=== PATIENT | male | born 1985 ===

== ENCOUNTER 2020-08-27 10:01 | Emergency (ER) | payer BC ==
[~2020-08-27] VITALS: Ht 180.3 cm; Wt 97.7 kg
[~2020-08-27 10:01] MED LIST: DOXYCYCLINE 10100 MG PO; NO HOME MEDICATIONS; PREDNISONE20 MG PO; PROAIR HFA0.09 MG/AC IH; TYLENOL 325MG325 MG PO; ZITHROMAX Z PA250 MG PO
[2020-08-27 10:09] VITALS: TEMP 98.4
[2020-08-27] MEDS ORDERED: DUO-KAPS1 CAP PO (10:14)
[2020-08-27] MEDS ORDERED: ROBAXIN 50500 MG/TAB PO (11:46)
[2020-08-27] MEDS ORDERED: MOTRIN 400400 MG/TAB PO (11:46)
[2020-08-27 11:58] VITALS: BP 122/88; PULSE 72
== END 2020-08-27 12:00 | disposition home or self-care (01) ==
LOC: COL.ER 10:01
DX: S09.90XA Unspecified injury of head, initial encounter (principal); S20.212A Contusion of left front wall of thorax, initial encounter; S70.02XA Contusion of left hip, initial encounter; S50.812A Abrasion of left forearm, initial encounter; R55 Syncope and collapse; V19.9XXA Pedal cyclist (driver) (passenger) injured in unspecified traffic accident, initial encounter
CPT/HCPCS: J1885

== ENCOUNTER → 2021-09-05 | Outpatient (CLI) | payer BC ==
[~2021-09-05] MED LIST changes: +DUO-KAPS1 CAP PO; +MEDROL 4MG DOSPA4 MG PO; +MOTRIN 400400 MG/TAB PO; +NORCO 325 MG-51 TAB PO; +ROBAXIN 50500 MG/TAB PO
== END ==
LOC: COL.RAD 13:11
DX: M54.9 Dorsalgia, unspecified (principal)

== ENCOUNTER → 2021-10-09 | Outpatient (CLI) | payer BC | LOC: COL.RAD 07:03 | DX: M51.17 Intervertebral disc disorders with radiculopathy, lumbosacral region (principal) ==

== ENCOUNTER 2022-03-26 13:34 | Emergency (ER) | payer BC ==
[~2022-03-26] VITALS: Ht 180.3 cm; Wt 93.2 kg
[2022-03-26 13:48] VITALS: BP 148/95; TEMP 98.5
[2022-03-26 16:25] VITALS: PULSE 76
== END 2022-03-26 16:25 | disposition home or self-care (01) ==
LOC: COL.ER 13:34
DX: S01.511A Laceration without foreign body of lip, initial encounter (principal); S01.512A Laceration without foreign body of oral cavity, initial encounter; Z23 Encounter for immunization; F17.210 Nicotine dependence, cigarettes, uncomplicated; W22.8XXA Striking against or struck by other objects, initial encounter; Y92.524 Gas station as the place of occurrence of the external cause

== ENCOUNTER 2022-04-01 13:09 | Emergency (ER) | payer BC ==
[~2022-04-01] VITALS: Ht 182.9 cm; Wt 93.2 kg
[2022-04-01 14:33] VITALS: TEMP 98.5
[2022-04-01] MEDS ORDERED: AMOXICILLIN 8751 TAB PO (15:33)
[2022-04-01 16:00] VITALS: BP 152/81; PULSE 77
== END 2022-04-01 16:00 | disposition home or self-care (01) ==
LOC: COL.ER 13:09 → EDSTATUS 14:07 → COL.ER 16:00
DX: L03.211 Cellulitis of face (principal); F17.200 Nicotine dependence, unspecified, uncomplicated

== ENCOUNTER 2023-12-21 16:00 | Outpatient (RCR) | payer OTHER ==
[~2023-12-21 16:00] MED LIST changes: +AMOXICILLIN 8751 TAB PO
== END 2023-12-23 | disposition home or self-care (01) ==
LOC: MKS.ESL.PT
DX: M54.41 Lumbago with sciatica, right side (principal); V89.2XXD Person injured in unspecified motor-vehicle accident, traffic, subsequent encounter

== ENCOUNTER 2024-01-21 16:15 | Outpatient (RCR) | payer OTHER | END 2024-01-23 | disposition home or self-care (01) | LOC: MKS.ESL.PT | DX: M54.41 Lumbago with sciatica, right side (principal) ==

== ENCOUNTER → 2024-01-22 | Outpatient (CLI) | payer OTHER | LOC: COL.RAD 11:51 | DX: M87.00 Idiopathic aseptic necrosis of unspecified bone (principal); M94.351 Chondrolysis, right hip; M94.352 Chondrolysis, left hip; M54.40 Lumbago with sciatica, unspecified side ==

== ENCOUNTER → 2024-02-04 | Outpatient (CLI) | payer OTHER ==
[~2024-02-04] MED LIST changes: +Iohexol 300 - 10 ML VIAL IV ONE; +Triamcinolone 40 MG/ML 1 ML VIAL IJ ONE
== END ==
LOC: COL.RAD 09:57
DX: M25.551 Pain in right hip (principal); M25.552 Pain in left hip
CPT/HCPCS: J0665; J3301; Q9967

== ENCOUNTER → 2024-02-22 | Outpatient (RCR) | payer OTHER ==
[~2024-02-22] MED LIST changes: -Iohexol 300 - 10 ML VIAL IV ONE; -Triamcinolone 40 MG/ML 1 ML VIAL IJ ONE
== END | disposition home or self-care (01) ==
LOC: MKS.ESL.PT
DX: M54.41 Lumbago with sciatica, right side (principal); V89.2XXD Person injured in unspecified motor-vehicle accident, traffic, subsequent encounter